=== PATIENT | male | born 2000 | race Caucasian/White ===

== ENCOUNTER 2022-05-01 10:38 | Emergency (ER) | payer OTHER, SELFPAY ==
[2022-05-01 11:12] VITALS: BP 140/104; PULSE 88; RESP 18; TEMP 37; O2SAT 97; BMI 35.9
--- NOTE | 2022-05-01 12:20 | ED_ITS ---
HPI - General Adult General Chief complaint: Animal Bite Stated complaint: left hand dog bite Time Seen by Provider: 05/01/22 12:06 Source: patient Mode of arrival: ambulatory Limitations: no limitations History of Present Illness HPI narrative: 22-year-old male presents to ED for left hand dog bite that occurred yesterday. Patient states a dog and his apartment complex attacked him and his service dog. Patient states he was bit in the left index finger and his dogs also bit. Patient states last night him in his doc started vomiting after being bitten. 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 Patient denies any swelling or redness or fingers but came to the ED to be evaluated. Patient denies any other complaints Related Data Previous Rx's Medication Instructions Recorded amoxicillin 875 mg-potassium 1 tab PO BID 10 days #20 tabs 05/01/22 clavulanate 125 mg tablet naproxen 500 mg tablet 500 mg PO BID PRN pain 10 days #20 05/01/22 tabs Allergies Allergy/AdvReac Type Severity Reaction Status Date / Time No Known Allergies Allergy Verified 05/01/22 12:07 Review of Systems Review of Systems: dog bite Yes all other systems are reviewed and are negative PENDING SALE TO [facility] Social History Social History Advance Directives: No Advance Directives Information Provided: Yes Physical Exam ED Vital Signs: Vital Signs - 24 hr 05/01/22 11:12 Temperature 98.6 F Pulse Rate 88 Respiratory Rate 18 Blood Pressure 140/104 H Pulse Oximetry 97 Oxygen Delivery Method Room Air BMI result Body Mass Index 35.9 Const General: cooperative, healthy appearing, comfortable, no acute distress, well developed, alert, awake and Physically active Orientation/consciousness: oriented to time and patient oriented x3 HENMT Head: Yes normal to inspection, Yes No palpable skull fracture present, Yes normocephalic, Yes atraumatic and No abrasion Eyes General: appearance normal, both eyes and all related structures Neck Neck: Yes normal visual inspection, Yes full ROM, Yes no lymphadenopathy, Yes no meningeal signs, Yes trachea midline, Yes supple, No anterior neck swelling and No tender Chest Chest palpation & inspection: normal inspection of the chest and normal palpation of entire chest wall Resp Effort & Inspection: normal respiratory effort and able to speak in complete sentences Auscultation: clear to auscultation bilaterally Cardio Jugular venous distension: no JVD Heart sounds: S1 normal heart sound present and S2 normal heart sound present GI Inspection: Yes normal to inspection and No abdominal wall ecchymosis Palpation (GI): Soft to palpation, not firm, nontender, no guarding and not r igid General: No CVA tenderness and Yes no CVA tenderness Back/Spine/Pelvis Back: no CVA tenderness, No CVA tenderness and No back tenderness Skin General skin exam: no rashes or lesions noted and elasticity normal Neuro General: oriented to time, patient oriented x3, gait normal, tone normal and no meningeal signs Cranial nerves: Yes CN's II-XII intact bilaterally Extrem General: Yes normal to inspection and Yes full ROM Hand/finger images: 1. very small puncture wound negative for any active bleeding, erythema, swelling, redness, or pus discharge. Patient has complete range of motion of all fingers and hand is negative for redness, swelling, pus discharge. Negative for red streaks going up extremity. Motor, neuro, and vascular of extremity intact. Psych Appearance: grossly normal, well kempt and not disheveled Course Course Course Narrative: Animal bite. Rabies vaccine Tdap ordered. Antibiotics will be prescribed Reevaluation(s) Reevaluation #1: patient given she had to come back for rabies vaccine injections. Patient discharged with Augmentin. Patient will follow-up with primary care provider. Patient's dog presently being seen by the [employer] with his mother. patient informed to return to the ED for schedule vaccine injections.. Time: 12:28 Medical Decision Making [facility] Narrative Medical decision making narrative: animal bite Discharge Plan Discharge Clinical Impression: Dog bite Patient Disposition: Home, Self-Care Instructions: Animal Bite (ED) Additional Instructions: return to the ED immediately for any redness, swelling, pus discharge, foul odor, inability to move extremity, fever, chills, foaming of the mouth, altered mental status, or any other concerning symptoms. Recommend follow-up with [facility] care provider and please be compliant with the antibiotics Prescriptions: New amoxicillin-pot clavulanate 875-125 mg tablet 1 tab PO BID 10 Days Qty: 20 0RF naproxen 500 mg tablet 500 mg PO BID PRN (Reason: pain) 10 Days Qty: 20 0RF Stand Alone Forms: Work/School Release Interventions: ED Discharge Assessment Last Done: 05/01/22 13:26 Discharge Date/Time: 05/01/22 13:26 Print Language: Japanese
[2022-05-01] MEDS: Diphth,Pertus(ACell),Tet Adult 0.5 ML SYRINGE IM (12:39)
[2022-05-01] MEDS: Rabies Vaccine (PCEC)/PF 1 ML VIAL IM (12:40)
[2022-05-01] MEDS: Rabies Immune Globulin/PF 900 UNIT/3 ML VIAL 2540.12 UNIT IM (12:43)
== END 2022-05-01 13:26 | disposition home or self-care (01) ==
PROVIDERS: Emergency Provider Student in an Organized Health Care Education/Training Program
DX: S61.251A Open bite of left index finger without damage to nail, initial encounter (principal); M79.642 Pain in left hand; W54.0XXA Bitten by dog, initial encounter; Y93.9 Activity, unspecified; Y92.009 Unspecified place in unspecified non-institutional (private) residence as the place of occurrence of the external cause; Y99.9 Unspecified external cause status; Z20.3 Contact with and (suspected) exposure to rabies; Z29.14 Encounter for prophylactic rabies immune globulin; Z79.899 Other long term (current) drug therapy
CPT/HCPCS: 90375; 90471; 90472; 90675; 90715; 96372; 99283; 99284

== ENCOUNTER 2022-05-04 14:54 | Outpatient (REF) | payer OTHER, SELFPAY | END 2022-05-04 14:55 | disposition home or self-care (01) | LOC: HO.MDS 14:54 | PROVIDERS: Visit Provider Physician Assistant | DX: Z29.14 Encounter for prophylactic rabies immune globulin (principal); S61.251D Open bite of left index finger without damage to nail, subsequent encounter; W54.0XXD Bitten by dog, subsequent encounter; Z20.3 Contact with and (suspected) exposure to rabies | CPT/HCPCS: 90471; 90675 ==

== ENCOUNTER 2022-05-08 15:02 | Outpatient (REF) | payer OTHER, SELFPAY | END 2022-05-08 15:03 | disposition home or self-care (01) | LOC: HO.MDS 15:02 | PROVIDERS: Visit Provider Physician Assistant | DX: Z29.14 Encounter for prophylactic rabies immune globulin (principal); S61.251D Open bite of left index finger without damage to nail, subsequent encounter; W54.0XXD Bitten by dog, subsequent encounter; Z20.3 Contact with and (suspected) exposure to rabies | CPT/HCPCS: 90471; 90675 ==

== ENCOUNTER 2022-05-15 14:51 | Outpatient (REF) | payer OTHER, SELFPAY | END 2022-05-15 14:52 | disposition home or self-care (01) | LOC: HO.MDS 14:51 | PROVIDERS: Visit Provider Physician Assistant | DX: Z29.14 Encounter for prophylactic rabies immune globulin (principal); S61.251D Open bite of left index finger without damage to nail, subsequent encounter; W54.0XXD Bitten by dog, subsequent encounter; Z20.3 Contact with and (suspected) exposure to rabies | CPT/HCPCS: 90471; 90675 ==

== ENCOUNTER 2022-11-29 19:52 | Emergency (ER) | payer OTHER, SELFPAY ==
--- NOTE | ~2022-11-29 | CT_ITS ---
EXAMINATION: CT ABDOMEN AND PELVIS WITH CONTRAST CLINICAL INFORMATION: Left-sided abdominal pain. Vomiting and diarrhea. COMPARISON: None TECHNIQUE: Multidetector volumetric images were obtained from the superior aspect of the liver through the pubic symphysis following administration 85 mL of Omnipaque 350 intravenous contrast. Sagittal and coronal reformatted images were obtained on the technologist's workstation. Oral contrast: No This CT examination was performed using dose optimization techniques as appropriate, variously including the following: *Automated exposure control *Adjustment of mA and/or kV according to patient size (this includes techniques or standardized protocols for targeted exams where dose is matched to indication/reason for exam; i.e. extremities or head) *Use of iterative reconstruction technique DLP: 912 mGy-cm FINDINGS: LUNG BASES: The visualized lung bases are unremarkable. LIVER, GALLBLADDER, AND BILIARY TREE: The liver is normal in size, shape, and attenuation. No focal hepatic lesion or biliary ductal dilatation is present. The gallbladder is unremarkable with no evidence of radiopaque gallstones, gallbladder wall thickening, or obvious pericholecystic inflammatory changes. PANCREAS: Unremarkable. SPLEEN: Unremarkable. ADRENAL GLANDS: Unremarkable. KIDNEYS AND URETERS: The kidneys are normal in size, shape, and attenuation. No hydronephrosis, hydroureter, or calculi seen. No perinephric stranding. BLADDER: Unremarkable. GASTROINTESTINAL TRACT: The stomach is unremarkable. Normal caliber small bowel. No obstruction. No colonic wall thickening or inflammation. Normal appendix. No free air or free fluid. ABDOMINAL WALL: No significant hernia is appreciated. LYMPH NODES: Normal. VASCULAR: Unremarkable. PELVIC VISCERA: The prostate and seminal vesicles are unremarkable. OSSEOUS STRUCTURES: No acute or suspicious osseous abnormality. CT/CT abdomen pelvis w IV con IMPRESSION: No acute findings of the abdomen or pelvis. No inflammatory changes. Fleischner guidelines were followed.
[2022-11-29 20:53] VITALS: BP 125/87; PULSE 101; RESP 20; TEMP 37.7; O2SAT 99; BMI 36.6
[2022-11-29 22:12] LABS: Basophils Absolute Auto 0.1 X10*3/uL (0.0-0.2); Basophils Percent Auto 0.6 % (0-2); Eosinophils Absolute Auto 0.2 X10*3/uL (0.0-0.4); Eosinophils Percent Auto 1.4 % (0-4); Hematocrit 44.9 % (42.0-52.0); Hemoglobin 15.5 g/dl (14.0-18.0); Imm Gran Abs Auto 0.05 X10*3/uL (0.00-0.03); Imm Gran Pct Auto 0.4 % (0.0-0.4); Lymphocytes Absolute Auto 5.2 X10*3/uL (1.2-4.9); Lymphocytes Percent Auto 39.3 % (20-40); MANUAL DIFF FLAG SCAN; Mean Corpuscular HGB Conc 34.5 g/dl (31.0-36.0); Mean Corpuscular Hemoglobin 28.8 pg (27.0-33.0); Mean Corpuscular Volume 83.5 fL (80.0-98.0); Mean Platelet Volume 10.2 fL (9.4-12.4); Monocytes Absolute Auto 0.8 X10*3/uL (0.1-1.2); Monocytes Percent Auto 6.2 % (2-11); Neutrophils Percent Auto 52.1 % (45-73); Platelet Count 302 X10*3/uL (160-400); Red Blood Count 5.38 X10*6/uL (4.60-5.80); Red Cell Distribution Width 12.6 % (11.0-16.0); SCAN SMEAR FLAG 1; White Blood Count 13.3 X10*3/uL (4.8-10.8)
[2022-11-29 22:16] LABS: SLIDE REVIEW VERIFIED
[2022-11-29 22:25] LABS: Alanine Aminotransferase 95 U/L (0-40); Albumin Level 4.8 g/dL (3.5-5.0); Alkaline Phosphatase 124 U/L (39-117); Anion Gap 16 (12-20); Aspartate Amino Transferase 41 U/L (5-37); Bilirubin Direct < 0.2 mg/dL (0.0-0.5); Bilirubin Total 0.5 mg/dL (0.0-1.0); Blood Urea Nitrogen 15 mg/dL (9-16); Calcium 9.8 mg/dL (8.4-10.2); Carbon Dioxide 23 mmol/L (22-29); Chloride 107 mmol/L (96-108); Estimated Glomerular Filt Rate > 60; Glucose Random 128 mg/dL (60-115); Lipase 21 U/L (8-78); Potassium 4.2 mmol/L (3.3-5.1); Sodium 142 mmol/L (135-145); Total Protein 7.7 g/dL (6.5-8.0)
--- NOTE | 2022-11-29 23:37 | ED.GENADULT ---
HPI - General Adult General Chief complaint: Abdominal Pain Stated complaint: Vomiting, diarrhea Time Seen by Provider: 11/29/22 23:17 Source: patient and RN notes reviewed Mode of arrival: ambulatory Limitations: no limitations History of Present Illness HPI narrative: 22-year-old male who denies any past medical history presents for evaluation of abdominal pain vomiting. patient reports his symptoms started about 3 weeks ago. He reports that he has left-sided abdominal pain is worse at night. He also has associated nausea, vomiting, and diarrhea. His pain is currently a 3/10. He went to [facility] 3 weeks ago. Reports that he had blood test done and was given medications outweighs pain. He reports he was given omeprazole 20 mg daily and ondansetron 4 mg as needed for nausea and vomiting he reports other than blood work, no imaging was done. He followed up with his primary doctor a week later. He reports the omeprazole was increased to 40 mg daily but no other testing was done the patient is now frustrated because he continues to have symptoms but has no diagnosis he was not referred to GI and has never seen GI denies any history of abdominal surgeries the patient also reports he is interested in speaking to crisis. Shemar Chacon asked him what he would like to discuss he reports mama on diet yesterday and also not sure will have any housing after the end of this month. He explicitly states that he is not suicidal Related Data Previous Rx's Medication Instructions Recorded amoxicillin 875 mg-potassium 1 tab PO BID 10 days #20 tabs 05/01/22 clavulanate 125 mg tablet naproxen 500 mg tablet 500 mg PO BID PRN pain 10 days #20 05/01/22 tabs Allergies Allergy/AdvReac Type Severity Reaction Status Date / Time No Known Allergies Allergy Verified 05/01/22 12:07 Review of Systems Constitutional: Constitutional: Reports as per HPI, Denies chills and Denies fatigue ENT: Denies sore throat Cardiovascular: Cardiovascular: Denies chest pain and Reports palpitations Respiratory: Respiratory: Denies cough Gastrointestinal: Gastrointestinal: Reports abdominal pain, Denies constipation, Reports dyspepsia, Reports diarrhea, Reports nausea, Reports vomiting and Denies hematemesis Genitourinary: Genitourinary: Denies difficulty urinating and Denies dysuria Musculoskeletal: Musculoskeletal: Denies back pain, Denies myalgias and Denies arthralgias Endocrine: Endocrine: Denies fatigue and Reports palpitations [facility] Social History Social History Advance Directives: No Advance Directives Information Provided: No Physical Exam ED Vital Signs: Vital Signs - 24 hr 11/29/22 20:53 11/30/22 00:24 Temperature 100 F 98.6 F Pulse Rate 101 H 97 Respiratory Rate 20 16 Blood Pressure 125/87 116/71 Pulse Oximetry 99 98 Oxygen Delivery Method Room Air Room Air BMI result Body Mass Index 36.6 Const General: cooperative, healthy appearing, comfortable, no acute distress, alert, awake and Physically active Nutritional Appearance: obese Orientation/consciousness: patient oriented x3 Limitations: no limitations HENMT Head: Yes normocephalic and Yes atraumatic Face and sinus: Yes face symmetric Mouth: Normal oral and palatal mucosa present and tongue normal Teeth and gingiva: dentition normal Throat: Yes posterior oropharynx normal ( without erythema, tonsillar exudates or edema), No peritonsillar mass, No uvula laterally displaced and No uvular edema Neck Neck: Yes normal visual inspection, Yes full ROM, No no meningeal signs, Yes supple and No lymphadenopathy Chest Chest palpation & inspection: normal inspection of the chest, normal palpation of entire chest wall and no crepitus Resp Effort & Inspection: normal respiratory effort and able to speak in complete sentences Auscultation: clear to auscultation bilaterally Cardio Rate: regular rate Rhythm: regular rhythm GI Inspection: Yes normal to inspection and No distended Palpation (GI): Soft to palpation, Tenderness to palpation present (GI) in the LLQ and in the LUQ; not in the RLQ, not in the RUQ, Gonzalez's sign negative and Rovsing's sign negative and no guarding Skin General skin exam: no rashes or lesions noted Neuro General: patient oriented x3 and No no meningeal signs Course Reevaluation(s) Reevaluation #1: patient's vital signs remained stable, he is on exam. His CT scan and pelvis was unremarkable for acute pathology. This was discussed with the patient. He will be referred to the care team prior to discharge. I also put in a referral for GI for an upper endoscopy for the patient. Time: 00:49 Medications Administered Discontinued Medications Generic Name Dose Route Start Last Admin Trade Name Freq PRN Reason Stop Dose Admin Iohexol 85 ml 11/29/22 23:55 11/29/22 23:56 Iohexol 350 Mg/Ml 100 Ml Infus..Btl IV 11/29/22 23:56 85 ml ONCE ONE Administration Medical Decision Making Medical Decision Making [facility] Narrative: this is a healthy 25 mL past medical history is for obesity presenting for evaluation of abdominal pain nausea vomiting. He denies any black or bloody stool, hematemesis or coffee-ground emesis. He was treated with high-dose PPI as well as antiemetics and continues to have symptoms. He is requesting imaging as this was not done despite his 2 visits to other providers. We will get a CT scan of the pelvis to evaluate for infectious process such as colitis, diverticulitis. Though clinically I feel is likely, the patient does have a white count 13.3k The patient has no right upper quadrant tenderness to suggest biliary disease or liver disease. There is no right lower quadrant tenderness to suggest appendicitis. The patient likely require referral to GI for upper endoscopy. Once medically cleared the patient referred to the care team Differential Diagnosis Differential Diagnoses: The differential diagnosis associated with the presentation includes ( nausea and vomiting, GERD, gastritis, peptic ulcer disease, biliary colic, acute appendicitis, diverticulitis, colitis) Lab Data 11/29/22 21:52 11/29/22 21:52 Labs: Lab Results 11/29/22 11/29/22 Range/Units 21:52 21:52 WBC 13.3 H (4.8-10.8) X10*3/uL RBC 5.38 (4.60-5.80) X10*6/uL Hgb 15.5 (14.0-18.0) g/dl Hct 44.9 (42.0-52.0) % MCV 83.5 (80.0-98.0) fL MCH 28.8 (27.0-33.0) pg MCHC 34.5 (31.0-36.0) g/dl RDW 12.6 (11.0-16.0) % Plt Count 302 (160-400) X10*3/uL MPV 10.2 (9.4-12.4) fL Immature Gran % (Auto) 0.4 (0.0-0.4) % Neut % (Auto) 52.1 (45-73) % Lymph % (Auto) 39.3 (20-40) % [place] % (Auto) 6.2 (2-11) % Eos % (Auto) 1.4 (0-4) % Baso % (Auto) 0.6 (0-2) % Lymph # (Auto) 5.2 H (1.2-4.9) X10*3/uL [place] # (Auto) 0.8 (0.1-1.2) X10*3/uL Eos # (Auto) 0.2 (0.0-0.4) X10*3/uL Baso # (Auto) 0.1 (0.0-0.2) X10*3/uL Abs Immat Gran (auto) 0.05 H (0.00-0.03) X10*3/uL Absolute Neuts (auto) 7.0 (2.0-8.3) x10*3/uL Absolute Nucleated RBC 0.000 (0.0-0.012) X10*3/uL Nucleated RBC % (auto) 0.0 (0.0-0.2) /100WBC Smear Tech's Comments VERIFIED Sodium 142 (135-145) mmol/L Potassium 4.2 (3.3-5.1) mmol/L Chloride 107 (96-108) mmol/L Carbon Dioxide 23 (22-29) mmol/L Anion Gap 16 (12-20) BUN 15 (9-16) mg/dL Creatinine 0.87 (0.5-1.4) mg/dL Estim Creat Clear Calc 187.0 Estimated GFR > 60 Random Glucose 128 H (60-115) mg/dL Calcium 9.8 (8.4-10.2) mg/dL Total Bilirubin 0.5 (0.0-1.0) mg/dL Direct Bilirubin < 0.2 (0.0-0.5) mg/dL AST 41 H (5-37) U/L ALT 95 H (0-40) U/L Alkaline Phosphatase 124 H (39-117) U/L Total Protein 7.7 (6.5-8.0) g/dL Albumin 4.8 (3.5-5.0) g/dL Lipase 21 (8-78) U/L Discharge Plan Discharge Clinical Impression: Abdominal pain Patient Disposition: Home, Self-Care Additional Instructions: continue taking omeprazole for abdominal pain and continue taking the ondansetron for nausea and vomiting. your blood work as well as our CT scan of the pelvis were reassuring today he should follow-up with Gastroenterology for an upper endoscopy. He may follow-up with the office of Dr. Copeland at the number provided Prescriptions: No Action amoxicillin-pot clavulanate 875-125 mg tablet 1 tab PO BID 10 Days Qty: 20 0RF naproxen 500 mg tablet 500 mg PO BID PRN (Reason: pain) 10 Days Qty: 20 0RF Referrals: Louis Copeland [Physician] - 2 weeks (upper abdominal pain consistent with GERD. Not relieved with PPI. ? endoscopy)
[2022-11-29] MEDS: iohexoL 350 MG/ML 100 ML INFUS..BTL 85 ML IV (23:56)
[2022-11-30 00:24] VITALS: BP 116/71; PULSE 97; RESP 16; TEMP 37; O2SAT 98
--- NOTE | 2022-11-30 00:47 | PC.NURSE ---
PT A&Ox4, reports N/V, unable to keep PO fluids down. Reports LLQ ABD pain, non tender to touch, hypoactive bowel sounds. Reports last BM was diarrhea. PT ambulated to independently.
--- NOTE | 2022-11-30 01:47 | MHC.CARE ---
T/W spoke with Chavo regarding his anxiety and concerns over being told this week that he has to move out of his apartment that he shares with, his Mom who is disabled and his sister who is studying to be a nurse ,by this Sunday. 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 We discussed accessing the housing court for support as well as the DTA. Chavo reports having a therapist in the community whom he will also access for community based supports as well. I gave Chavo a list of the local shelters and phone number for the DTA as well.
== END 2022-11-30 02:18 | disposition home or self-care (01) ==
PROVIDERS: Emergency Provider Emergency Medicine; PCP Physician Assistant
DX: R10.9 Unspecified abdominal pain (principal); R11.2 Nausea with vomiting, unspecified; Z79.899 Other long term (current) drug therapy
CPT/HCPCS: 36415; 74177; 80048; 80076; 83690; 85025; 99283; 99284; Q9967